=== PATIENT | male | born 1990 | race Caucasian/White ===

== ENCOUNTER 2017-12-03 02:40 | Emergency (ER) | payer OTHER ==
[~2017-12-03] VITALS: Ht 172.7 cm; Wt 92.1 kg
[2017-12-03 02:46] VITALS: Ht 172.7 cm; Wt 92.1 kg
[2017-12-03 03:45] VITALS: BP 145/83
== END 2017-12-03 03:45 | disposition home or self-care (01) ==
LOC: ED 02:40
DX: M20.011 Mallet finger of right finger(s) (principal)